=== PATIENT | female | born 1960 | race Two or more races ===

== ENCOUNTER 2017-09-22 09:31 | Outpatient (CLI) | payer OTHER | END 2017-09-22 09:39 | disposition home or self-care (01) | LOC: SONOGRAMA 09:31 → MAMO-SONO 09:45 | DX: N84.0 Polyp of corpus uteri (principal) ==

== ENCOUNTER → 2017-11-03 | Day surgery (SDC) | payer OTHER ==
[~2017-11-03] MED LIST: BREO ELLIPTA 21 EACH; EVISTA60 MG PO; PNEU16DI2; PROVASTATIN PO; SINGULAIR10 MG PO; ZYRTEC10 MG PO
== END | disposition home or self-care (01) ==
LOC: ADM 10-28 07:30 → CIR.AMB 07:30
DX: N84.0 Polyp of corpus uteri (principal)